=== PATIENT | female | born 1970 | race Caucasian/White ===

== ENCOUNTER 2017-03-28 17:14 | Emergency (ER) | payer BC ==
[2017-03-28] MEDS ORDERED: Aspirin Low Dose CHEW TAB* 81 MG PO ONE (17:59)
[2017-03-28 18:23] LABS: ABS Basophils 0 10^3/ul (0-0.2); ABS Eosinophils 0.2 10^3/ul (0-0.6); ABS Lymphocytes 2.9 10^3/ul (1.0-4.8); ABS Monocytes 0.7 10^3/ul (0-0.8); ABS Neutrophils 3.3 10^3/ul (1.5-7.7); ABS Nucleated RBC 0 10^3/ul; Eosinophil % 3.1 % (0-6); Hematocrit 41 % (35-47); Hemoglobin 13.9 g/dl (12.0-16.0); Lymphocyte % 40.5 % (25-47); Mean Corpuscular HGB Conc 34 g/dl (31-36); Mean Corpuscular Hemoglobin 29 pg (27-31); Mean Corpuscular Volume 86 fL (80-97); Mean Platelet Volume 9 um3 (7.4-10.4); Nucleated Red Blood Cells % 0; Platelet Count 253 10^3/ul (150-450); Red Blood Count 4.75 10^6/ul (4.0-5.4); Red Cell Distribution Width 13 % (10.5-15); White Blood Count 7.1 10^3/ul (3.5-10.8)
[2017-03-28 18:41] LABS: INR 0.91 (0.77-1.02)
[2017-03-28 18:45] LABS: EGFR Non-African American 83.8 (>60)
[2017-03-28] MEDS ORDERED: Iohexol 350* (CONTRAST) 500 ML MDV IV ONE (18:50)
--- NOTE | 2017-03-28 19:32 | ED ---
HPI Chest Pain - HPI Summary HPI Summary: Patient is an otherwise healthy 46-year-old female who presents to the ED with chief complaint of midsternal chest pain with radiation to the left shoulder worse with inspiration. Pain is rated a 4 out of 10 is constant and not worse with exertion. Symptoms began yesterday and continued and worsened throughout the day. She is extremely anxious and tearful. Endorses shortness of breath. Denies nausea, vomiting, constipation, diarrhea. Denies numbness or Tingling. The pain does not radiate into the left arm or the neck. She has no cardiac history. No family history. She does not take any medications. She does not see a dough mixer. She is eating and drinking okay, denies any visual changes , denies weakness in the legs, denies urinary symptoms or back pain. - History of Current Complaint Chief Complaint: EDChestPainROMI Time Seen by Provider: 03/28/17 17:50 Hx Obtained From: Patient Onset/Duration: Started Hours Ago Timing: Constant Initial Severity: Moderate Current Severity: Moderate Pain Intensity: 7 Pain Scale Used: 0-10 Numeric Chest Pain Location: Mid Sternal Chest Pain Radiates: Yes Chest Pain Radiates To:: Shoulder Character: Dull/Aching - Risk Factors Pulmonary Embolism Risk Factors: Negative TAD Risk Factors: Negative - Allergy/Home Medications Allergies/Adverse Reactions: Allergies Allergy/AdvReac Type Severity Reaction Status Date / Time morphine Allergy Nausea And Verified 03/28/17 19:07 Vomiting Home Medications: Home Medications Amitriptyline TAB* [Elavil TAB*] 10 mg PO DAILY 03/28/17 [History Confirmed 01/31] Ascorbic Acid TAB* [Vitamin C TAB*] 500 mg PO DAILY 03/28/17 [History Confirmed 03/28/17] Ibuprofen TAB* [Advil TAB*] 200 mg PO DAILY PRN 03/28/17 [History Confirmed 01/31] L.acidoph,Paracasei, B.lactis [Probiotic] 1 each PO BID 03/28/17 [History Confirmed 03/28/17] Omeprazole CAP* [Prilosec CAP* 20 MG] 20 mg PO BID 03/28/17 [History Confirmed 03/28/17] PMH/Surg Hx/FS Hx/Imm Hx Previously Healthy: Yes Endocrine/Hematology History: Denies: Hx Anticoagulant Therapy, Hx Diabetes, Hx Thyroid Disease Cardiovascular History: Denies: Hx Hypertension, Hx Pacemaker/ICD Respiratory History: Reports: Other Respiratory Problems/Disorders - HAS INHALER FOR RARE URI Sx Denies: Hx Asthma, Hx Chronic Obstructive Pulmonary Disease (COPD) GI History: Reports: Hx Gastroesophageal Reflux Disease - OCCASSIONAL Sx USES MED PRN History: Denies: Hx Renal Disease Sensory History: Reports: Hx Contacts or Glasses - WILL WEAR GLASSES Opthamlomology History: Reports: Hx Contacts or Glasses - WILL WEAR GLASSES Neurological History: Reports: Hx Headaches - RARE, BUT HAS ONE TODAY Denies: Hx Dementia, Hx Seizures Comment Only: Other Neuro Impairments/Disorders - USES OTC MEDS FOR [place] RELIEF Psychiatric History: Denies: Hx Substance Abuse - Surgical History Surgery Procedure, Year, and Place: 1971 TONSILLECTOMY. 2004 RT BREAST LUMPECTOMY, BENIGN. 2006 LEFT HIP ARTHROSCOPY [facility]. 02/2012 GALLBLADDER CORNING. 02/2013 LEFT OVARIAN CYST [facility] Hx Anesthesia Reactions: No - Immunization History Date of Tetanus Vaccine: UTD Date of Influenza Vaccine: UTD Hx Pertussis Vaccination: No Immunizations Up to Date: Unable to Obtain/Confirm Infectious Disease History: No Infectious Disease History: Denies: Hx Hepatitis, Hx Human Immunodeficiency Virus (HIV), Traveled Outside the [place] in Last 30 Days - Social History Occupation: Employed Full-time Lives: With Family Alcohol Use: Weekly Alcohol Amount: 4-6 DRINKS/ WEEK Hx Substance Use: No Substance Use Type: Reports: None Hx Tobacco Use: No Smoking Status (MU): Never Smoked Tobacco Have You Smoked in the Last Year: No Review of Systems Constitutional: Negative Negative: Fever, Chills, Fatigue, Skin Diaphoresis Eyes: Negative Positive: Chest Pain Positive: Shortness Of Breath Gastrointestinal: Negative Positive: no symptoms reported, see HPI Positive: Myalgia - left shoulder pain Neurological: Negative Positive: Anxious All Other Systems Reviewed And Are Negative: Yes Physical Exam Triage Information Reviewed: Yes Vital Signs On Initial Exam: Initial Vitals Temp Pulse Resp BP Pulse Ox 98.6 F 74 16 128/75 100 03/28/17 17:16 18 17:16 18 17:16 18 17:16 03/28/17 17:16 Vital Signs Reviewed: Yes Appearance: Positive: Well-Appearing, Well-Nourished Skin: Positive: Warm, Skin Color Reflects Adequate Perfusion Head/Face: Positive: Normal Head/Face Inspection Eyes: Positive: EOMI, WINSOME, Conjunctiva Clear Neck: Positive: Supple, No Lymphadenopathy Respiratory/Lung Sounds: Positive: Clear to Auscultation, Breath Sounds Present Cardiovascular: Positive: Normal, RRR, Pulses are Symmetrical in both Upper and Lower Extremities Musculoskeletal: Positive: Normal, Strength/ROM Intact Psychiatric: Positive: Normal AVPU Assessment: Alert Diagnostics - Vital Signs Vital Signs Temp Pulse Resp BP Pulse Ox 03/28/17 17:16 98.6 F 74 16 128/75 100 - Laboratory Lab Results: Lab Results 03/28/17 03/28/17 03/28/17 Range/Units 18:10 18:10 18:10 WBC (3.5-10.8) 10^3/ul RBC (4.0-5.4) 10^6/ul Hgb (12.0-16.0) g/dl Hct (35-47) % MCV (80-97) fL MCH (27-31) pg MCHC (31-36) g/dl RDW (10.5-15) % Plt Count (150-450) 10^3/ul MPV (7.4-10.4) um3 Neut % (Auto) (38-83) % Lymph % (Auto) (25-47) % Kane % (Auto) (1-9) % Eos % (Auto) (0-6) % Baso % (Auto) (0-2) % Absolute Neuts (auto) (1.5-7.7) 10^3/ul Absolute Lymphs (auto) (1.0-4.8) 10^3/ul Absolute Monos (auto) (0-0.8) 10^3/ul Absolute Eos (auto) (0-0.6) 10^3/ul Absolute Basos (auto) (0-0.2) 10^3/ul Absolute Nucleated RBC 10^3/ul Nucleated RBC % INR (Anticoag Therapy) 0.91 (0.77-1.02) APTT 28.0 (26.0-36.3) seconds Sodium 138 (133-145) mmol/L Potassium 4.0 (3.5-5.0) mmol/L Chloride 101 (101-111) mmol/L Carbon Dioxide 29 (22-32) mmol/L Anion Gap 8 (2-11) mmol/L BUN 19 (6-24) mg/dL Creatinine 0.74 (0.51-0.95) mg/dL Est GFR ( Amer) 107.7 (>60) Est GFR (Non-Af Amer) 83.8 (>60) BUN/Creatinine Ratio 25.7 H (8-20) Glucose 106 H (70-100) mg/dL Lactic Acid (0.5-2.0) mmol/L Calcium 9.9 (8.6-10.3) mg/dL Magnesium 2.0 (1.9-2.7) mg/dL Total Bilirubin 0.60 (0.2-1.0) mg/dL AST 18 (13-39) U/L ALT 17 (7-52) U/L Alkaline Phosphatase 73 (34-104) U/L Total Creatine Kinase 76 (10-223) U/L CK-MB (CK-2) 1.7 (0.6-6.3) ng/mL Myoglobin 13.2 L (14.3-65.8) ng/mL Troponin I 0.00 (<0.04) ng/mL B-Natriuretic Peptide 15 ( - 100) pg/mL Total Protein 7.1 (6.4-8.9) g/dL Albumin 4.6 (3.2-5.2) g/dL Globulin 2.5 (2-4) g/dL Albumin/Globulin Ratio 1.8 (1-3) 03/28/17 03/28/17 Range/Units 18:10 18:10 WBC 7.1 (3.5-10.8) 10^3/ul RBC 4.75 (4.0-5.4) 10^6/ul Hgb 13.9 (12.0-16.0) g/dl Hct 41 (35-47) % MCV 86 (80-97) fL MCH 29 (27-31) pg MCHC 34 (31-36) g/dl RDW 13 (10.5-15) % Plt Count 253 (150-450) 10^3/ul MPV 9 (7.4-10.4) um3 Neut % (Auto) 46.4 (38-83) % Lymph % (Auto) 40.5 (25-47) % Kane % (Auto) 9.5 H (1-9) % Eos % (Auto) 3.1 (0-6) % Baso % (Auto) 0.5 (0-2) % Absolute Neuts (auto) 3.3 (1.5-7.7) 10^3/ul Absolute Lymphs (auto) 2.9 (1.0-4.8) 10^3/ul Absolute Monos (auto) 0.7 (0-0.8) 10^3/ul Absolute Eos (auto) 0.2 (0-0.6) 10^3/ul Absolute Basos (auto) 0 (0-0.2) 10^3/ul Absolute Nucleated RBC 0 10^3/ul Nucleated RBC % 0 INR (Anticoag Therapy) (0.77-1.02) APTT (26.0-36.3) seconds Sodium (133-145) mmol/L Potassium (3.5-5.0) mmol/L Chloride (101-111) mmol/L Carbon Dioxide (22-32) mmol/L Anion Gap (2-11) mmol/L BUN (6-24) mg/dL Creatinine (0.51-0.95) mg/dL Est GFR ( Amer) (>60) Est GFR (Non-Af Amer) (>60) BUN/Creatinine Ratio (8-20) Glucose (70-100) mg/dL Lactic Acid 1.1 (0.5-2.0) mmol/L Calcium (8.6-10.3) mg/dL Magnesium (1.9-2.7) mg/dL Total Bilirubin (0.2-1.0) mg/dL AST (13-39) U/L ALT (7-52) U/L Alkaline Phosphatase (34-104) U/L Total Creatine Kinase (10-223) U/L CK-MB (CK-2) (0.6-6.3) ng/mL Myoglobin (14.3-65.8) ng/mL Troponin I (<0.04) ng/mL B-Natriuretic Peptide ( - 100) pg/mL Total Protein (6.4-8.9) g/dL Albumin (3.2-5.2) g/dL Globulin (2-4) g/dL Albumin/Globulin Ratio (1-3) Result Diagrams: 03/28/17 18:10 03/28/17 18:10 Lab Statement: Any lab studies that have been ordered have been reviewed, and results considered in the medical decision making process. Chest Pain Course/Dx - Course Course Of Treatment: During the course of treatment, the patient is evaluated for midsternal chest pain which radiates to the left shoulder and accompanying shortness of breath. Troponin obtained 0.00. Due to her symptoms of anxiousness, chest pain with inspiration, radiating to the left shoulder, obtain CTA. CTA with negative findings. I have discussed adding a muscle relaxer as maybe this is due to chest tightness or costochondritis. She is encouraged ibuprofen 600 mg. She has no cardiac history or family history. I have encouraged her to follow up with Dr. Clifford as everything is negative on this date. She is okay with this plan and discharge. I have also spoken with Dr. Moeller who I will refer her over to for uterine fibroid embolization and discussion. - Chest Pain Differential Diagnosis/HQI/PQRI: Chest Wall - Diagnoses Provider Diagnoses: Chest pain Discharge - Discharge Plan Condition: Stable Disposition: HOME Prescriptions: Cyclobenzaprine TAB* [Flexeril TAB*] 10 mg PO BID PRN #10 tab PRN Reason: Pain Patient Education Materials: Costochondritis (ED) Referrals: Valerio Clifford MD [Medical Doctor] - Medardo Moeller MD [Medical Doctor] - Lizet Domingo MD [Primary Care Provider] - Additional Instructions: Please follow up with Dr. Clifford in cardiology I have given you information for Dr. Moeller for uterine fibroids Flexeril twice daily x 5 days Ibuprofen 600mg three times daily
--- NOTE | 2017-03-28 19:56 | RAD ---
INDICATION: Intermittent midsternal chest pain with radiation to the left chest wall and left shoulder pain. COMPARISON: None TECHNIQUE: Axial source images were acquired following the administration of 65 mL Omnipaque [address] angiographic technique. Coronal and sagittal reconstructed images were constructed and reviewed. FINDINGS: There there are no filling defects in the pulmonary arteries to indicate acute pulmonary embolic disease. There are no focal infiltrates or effusions. There are no pulmonary parenchymal masses. The heart is normal in size. There is no evidence of pericardial effusion. There is no evidence of aortic aneurysm or dissection. There is no mediastinal, hilar, or axillary lymphadenopathy. The visualized osseous structures appear normal. Limited views of the upper abdomen show no abnormalities. IMPRESSION: No CT of evidence of pulmonary embolism or other acute thoracic abnormality..
[2017-03-28 20:07] VITALS: BP 121/62
[2017-03-28] MEDS ORDERED: Cyclobenzaprine TAB* 10 MG PO ONE (20:13)
== END 2017-03-28 20:27 | disposition home or self-care (01) ==
LOC: ED 17:14
DX: R07.9 Chest pain, unspecified (principal); R06.02 Shortness of breath; F41.9 Anxiety disorder, unspecified
CPT/HCPCS: 36415; 71275; 80053; 82550; 82553; 83605; 83735; 83874; 83880; 84484; 85025; 85610; 85730; 93005; 99283; A9270-GY; Q9967